=== PATIENT | female | born 1995 | race Caucasian/White ===

== ENCOUNTER 2023-12-28 16:28 | Emergency (ER) | payer MEDICAID, OTHER ==
[~2023-12-28] VITALS: Ht 162.6 cm; Wt 54.4 kg
[2023-12-28] MEDS ORDERED: LORA10TA7 PO (18:03)
[2023-12-28] MEDS ORDERED: POLY10DR3 EACHEYE (18:03)
[2023-12-28 18:27] VITALS: BP 112/74; TEMP 97.7; O2SAT 100
== END 2023-12-28 18:27 | disposition home or self-care (01) ==
LOC: ER 16:31
DX: H10.33 Unspecified acute conjunctivitis, bilateral (principal); E05.90 Thyrotoxicosis, unspecified without thyrotoxic crisis or storm